=== PATIENT | female | born 1955 | race Caucasian/White ===

== ENCOUNTER 2018-12-26 11:16 | Emergency (ER) | payer MEDICAID ==
[~2018-12-26] VITALS: Ht 162.6 cm; Wt 59.1 kg
[2018-12-26 13:33] VITALS: BP 127/87
[2018-12-26 14:07] LABS: BASOPHILS # (AUTO) 0.1 X10'3 (0-0.2); BASOPHILS % (AUTO) 1.2 % (0-1); EOSINOPHILS # (AUTO) 0.1 X10'3 (0-0.9); EOSINOPHILS % (AUTO) 0.8 % (0-6); HEMATOCRIT 28.7 % (35.0-45.0); HEMOGLOBIN 9.7 g/dl (12.0-16.0); LYMPHOCYTES # (AUTO) 1.5 X10'3 (1.1-4.8); LYMPHOCYTES % (AUTO) 17.2 % (21-51); MEAN CORPUSCULAR HEMOGLOBIN 34.7 PG (27.0-31.0); MEAN CORPUSCULAR HGB CONC 33.6 g/dL (33.0-36.5); MEAN CORPUSCULAR VOLUME 103.3 FL (78-98); MEAN PLATELET VOLUME 7.2 FL (7.4-10.4); MONOCYTES # (AUTO) 0.8 X10'3 (0-0.9); NEUTROPHILS % (AUTO) 70.8 % (42-75); PLATELET COUNT 351 X10'3 (140-440); RED BLOOD COUNT 2.78 X10'6 (4.20-5.60); RED CELL DISTRIBUTION WIDTH 15.6 % (11.5-14.5); WHITE BLOOD COUNT 8.5 X10'3 (4.5-11.0)
[2018-12-26 14:09] LABS: ALANINE AMINOTRANSFERASE 43 U/L (12-78); ALBUMIN 3.6 G/DL (3.4-5.0); ALBUMIN/GLOBULIN RATIO 0.9 (1.1-1.5); ALKALINE PHOSPHATASE 165 IU/L (46-116); ANION GAP 12 (8-16); ASPARTATE AMINO TRANSFERASE 90 U/L (10-37); BILIRUBIN,TOTAL 0.6 MG/DL (0.1-1.0); BLOOD UREA NITROGEN 7 MG/DL (7-18); BUN/CREATININE RATIO 10.9 (6.6-38.0); CALCIUM 9.1 MG/DL (8.5-10.1); CHLORIDE 100 MMOL/L (99-107); CREATININE 0.64 MG/DL (0.40-0.90); GLUCOSE 76 MG/DL (70-104); POTASSIUM 3.9 MMOL/L (3.5-5.1); SODIUM 140 MMOL/L (135-145); TOTAL CARBON DIOXIDE 27.9 MMOL/L (24-32); TOTAL PROTEIN 7.7 G/DL (6.4-8.2); eGFR > 90 ML/MIN
[2018-12-26 14:10] LABS: INR 1.1 INR; PARTIAL THROMBOPLASTIN TIME 28 SECONDS (22-32); PROTHROMBIN TIME 11.4 SECONDS (9.0-12.0)
[2018-12-26] MEDS ORDERED: CEPH-572 PO (14:33)
[2018-12-26] MEDS ORDERED: TETanus/Pertussis (Acell)/Diphther VAC/PF (Tdap-Adult) 0.5ml syringe IM ONE (14:40)
== END 2018-12-26 15:09 | disposition home or self-care (01) ==
LOC: ER 11:17
DX: S02.11HA Other fracture of occiput, left side, initial encounter for closed fracture (principal); D53.9 Nutritional anemia, unspecified; R43.0 Anosmia; Z88.5 Allergy status to narcotic agent; W10.8XXA Fall (on) (from) other stairs and steps, initial encounter; Y93.89 Activity, other specified; Y92.89 Other specified places as the place of occurrence of the external cause; Y99.8 Other external cause status
CPT/HCPCS: 36415; 70450; 80053; 85025; 85610; 85730; 90471; 90715; 99284

== ENCOUNTER 2019-06-29 12:16 | Emergency (ER) | payer MEDICARE, MEDICAID ==
[~2019-06-29] VITALS: Ht 162.6 cm; Wt 54.5 kg
[2019-06-29 12:24] VITALS: BP 151/103
== END 2019-06-29 13:09 | disposition home or self-care (01) ==
LOC: ER 12:17
DX: S50.862A Insect bite (nonvenomous) of left forearm, initial encounter (principal); S50.861A Insect bite (nonvenomous) of right forearm, initial encounter; S00.86XA Insect bite (nonvenomous) of other part of head, initial encounter; Z88.5 Allergy status to narcotic agent; W57.XXXA Bitten or stung by nonvenomous insect and other nonvenomous arthropods, initial encounter; Y93.89 Activity, other specified; Y92.89 Other specified places as the place of occurrence of the external cause; Y99.9 Unspecified external cause status
CPT/HCPCS: 99281

== ENCOUNTER 2020-02-02 08:52 | Emergency (ER) | payer MEDICARE, MEDICAID ==
[~2020-02-02] VITALS: Ht 162.6 cm; Wt 58.2 kg
[2020-02-02 08:55] VITALS: BP 158/103
[2020-02-02] MEDS ORDERED: PERM60CR4 TOP (09:00)
== END 2020-02-02 09:10 | disposition home or self-care (01) ==
LOC: ER 08:52
DX: L08.9 Local infection of the skin and subcutaneous tissue, unspecified (principal); Z88.5 Allergy status to narcotic agent; Z79.899 Other long term (current) drug therapy
CPT/HCPCS: 99283

== ENCOUNTER 2020-04-13 11:47 | Emergency (ER) | payer MEDICARE, MEDICAID ==
[~2020-04-13] VITALS: Ht 162.6 cm; Wt 59.1 kg
[~2020-04-13 11:47] MED LIST: PERM60CR4 TOP
[2020-04-13] MEDS ORDERED: triamcinolone acetonide 40mg/ml inj IM ONE (13:25)
[2020-04-13] MEDS ORDERED: diphenhydrAMINE 50 mg/ml inj IM ONE (13:25)
[2020-04-13] MEDS ORDERED: PRED20TA PO (13:27)
[2020-04-13] MEDS ORDERED: DIPH25CA83 PO (13:27)
[2020-04-13 13:38] VITALS: BP 156/89
== END 2020-04-13 13:58 | disposition home or self-care (01) ==
LOC: ER 11:48
DX: T63.441A Toxic effect of venom of bees, accidental (unintentional), initial encounter (principal); F10.10 Alcohol abuse, uncomplicated; Z88.5 Allergy status to narcotic agent; Z79.899 Other long term (current) drug therapy; Y92.89 Other specified places as the place of occurrence of the external cause
CPT/HCPCS: 96372; 99284; J1200; J3301

== ENCOUNTER 2022-05-14 14:50 | Emergency (ER) | payer MEDICARE, MEDICAID ==
[~2022-05-14] VITALS: Ht 160 cm; Wt 63.6 kg
[~2022-05-14 14:50] MED LIST changes: +DIPH25CA83 PO
[2022-05-14 15:13] LABS: MEAN CORPUSCULAR VOLUME 96.6 FL (78-98); MONOCYTES # (AUTO) 0.5 X10'3 (0-0.9); RED BLOOD COUNT 4.31 X10'6 (4.20-5.60)
[2022-05-14 15:15] LABS: BASOPHILS # (AUTO) 0.1 X10'3 (0-0.2); BASOPHILS % (AUTO) 1.2 % (0-1); EOSINOPHILS % (AUTO) 0.9 % (0-6); HEMATOCRIT 41.6 % (35.0-45.0); HEMOGLOBIN 14.6 g/dl (12.0-16.0); LYMPHOCYTES # (AUTO) 1.5 X10'3 (1.1-4.8); LYMPHOCYTES % (AUTO) 29.9 % (21-51); MEAN CORPUSCULAR HEMOGLOBIN 33.9 PG (27.0-31.0); MEAN CORPUSCULAR HGB CONC 35.1 g/dL (33.0-36.5); NEUTROPHILS # (AUTO) 2.9 X10'3 (1.8-7.7); PLATELET COUNT 154 X10'3 (140-440); RED CELL DISTRIBUTION WIDTH 12.8 % (11.5-14.5)
[2022-05-14 15:28] LABS: ALANINE AMINOTRANSFERASE 75 U/L (12-78); ALBUMIN 4.1 G/DL (3.4-5.0); ALBUMIN/GLOBULIN RATIO 1.1 (1.1-1.5); ALKALINE PHOSPHATASE 93 IU/L (46-116); ANION GAP 16 (8-16); ASPARTATE AMINO TRANSFERASE 86 U/L (10-37); BILIRUBIN,TOTAL 0.9 MG/DL (0.1-1.0); BLOOD UREA NITROGEN 9 MG/DL (7-18); BUN/CREATININE RATIO 11.8 (6.6-38.0); CALCIUM 8.6 MG/DL (8.5-10.1); CHLORIDE 100 MMOL/L (99-107); CREATININE 0.76 MG/DL (0.40-0.90); ETHANOL 0.109 GM/DL (0.0-0.010); GLUCOSE 131 MG/DL (70-104); POTASSIUM 3.6 MMOL/L (3.5-5.1); SODIUM 139 MMOL/L (135-145); TOTAL CARBON DIOXIDE 23.4 MMOL/L (24-32); TOTAL PROTEIN 7.8 G/DL (6.4-8.2); eGFR 76 ML/MIN
[2022-05-14] MEDS ORDERED: normal saline 1000ml 1,000 ML IV ONE (15:40)
[2022-05-14] MEDS ORDERED: LORazepam 2 mg/ml vial IV ONE (15:40)
[2022-05-14 17:53] LABS: CLARITY,URINE CLOUDY (Clear); COLOR,URINE YELLOW (Yellow); GLUCOSE, URINE NEGATIVE (Neg); KETONES,URINE 15 mg/dl (Neg); LEUKOCYTE ESTERASE ,URINE LARGE (Neg); NITRITES, URINE NEGATIVE (Neg); OCCULT BLOOD,URINE MODERATE (Neg); PH,URINE 5.5 (4.8-8.0); PROTEIN,URINE NEGATIVE (Neg); UROBILINOGEN,URINE 0.2 E.U/dL (0.2-1.0)
[2022-05-14 17:58] LABS: UA COLLECTION TYPE NON-SPECIFIED
[2022-05-14 18:00] LABS: SQUAMOUS EPITHELIAL CELL,UR FEW /LPF (FEW)
[2022-05-14 18:01] LABS: BACTERIA,URINE 1+ /HPF (Neg); WBC CLUMPS,URINE MANY /HPF (NEGATIVE); WBC,URINE 50-100 /HPF (0-4)
[2022-05-14] MEDS ORDERED: LORA-269 PO (18:02)
[2022-05-14] MEDS ORDERED: cephalexin 250mg capsule PO ONE (18:05)
[2022-05-14] MEDS ORDERED: CEPH-585 PO (18:06)
[2022-05-14 18:50] VITALS: BP 160/89
== END 2022-05-14 19:11 | disposition home or self-care (01) ==
LOC: ER 14:50
DX: F10.129 Alcohol abuse with intoxication, unspecified (principal); N39.0 Urinary tract infection, site not specified; Y90.9 Presence of alcohol in blood, level not specified; Z88.5 Allergy status to narcotic agent
CPT/HCPCS: 80053; 80320; 81001; 85025; 87088; 93005; 96361; 96374; 99284; J2060; J7030

== ENCOUNTER → 2025-05-10 | Outpatient (CLI) | payer MEDICARE, MEDICAID ==
[~2025-05-10] MED LIST changes: +LORA-269 PO
--- NOTE | 2025-05-10 13:18 | RADIOLOGY REPORT ---
PROCEDURE: MR MRI C SPINE INDICATION: RADICULOPATHY, THORACIC REGION EXAM DATE: 05/10/2025 12:18 PM COMPARISON: None TECHNIQUE: MRI cervical spine without intravenous contrast. FINDINGS: Grade 1 anterolisthesis of C7 on T1. There are degenerative endplate changes with anterior osteophy deyanira mid to lower cervical levels. The visualized posterior fossa and craniocervical junction are inta ct. The intrinsic cervical cord signal appears intact. There is no prevertebral soft tissue swellin g. The visualized paraspinal soft tissues are otherwise unremarkable. The following axial levels are detailed below: C2-C3: Mild posterior disc osteophyte complex complicated by facet arthropathy associated with mild left neural foraminal stenosis. No significant central canal stenosis. C3-C4: Mild posterior disc osteophyte complex complicated by facet arthropathy associated with mod erate left neural foraminal stenosis. No significant central canal stenosis. C4-C5: Moderate posterior disc osteophyte complex complicated by facet arthropathy associated with moderate to severe bilateral neural foraminal stenosis. Central canal measures 9 mm. C5-C6: Moderate posterior disc osteophyte complex complicated by facet arthropathy associated with moderate to severe bilateral neural foraminal stenosis. Central canal measures 6 mm. C6-C7: Moderate posterior disc osteophyte complex complicated by facet arthropathy associated with moderate to severe bilateral neural foraminal stenosis. Central canal measures 8 mm. C7-T1: Mild posterior disc bulge. No significant central canal or neural foraminal stenosis. IMPRESSION: 1. 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 Severe central canal stenosis C5-Moderate c entral canal stenosis C6-Mild central canal stenosis C4-5. Neural foraminal stenosis as above. 2. No definite abnormal cord signal. HS:Y
== END | disposition home or self-care (01) ==
LOC: MRI02 12:30
PROVIDERS: ATTEND Student in an Organized Health Care Education/Training Program
DX: M50.323 Other cervical disc degeneration at C6-C7 level (principal); M54.14 Radiculopathy, thoracic region; M47.812 Spondylosis without myelopathy or radiculopathy, cervical region; M48.02 Spinal stenosis, cervical region
CPT/HCPCS: 72141